=== PATIENT | female | born 1960 | race Caucasian/White ===

== ENCOUNTER 2019-06-04 14:34 | Emergency (ER) | payer MEDICARE ==
[~2019-06-04] VITALS: Ht 162.6 cm; Wt 49.0 kg
[2019-06-04] MEDS ORDERED: ALBUTEROL SULFATE 2.5 MG/3 ML NEBU. NEB ONE (14:45)
--- NOTE | 2019-06-04 15:27 | RAD ---
Exam: CT head and cervical spine INDICATION: Fall TECHNIQUE: Sequential axial images through the head and cervical spine were obtained without the administration of IV contrast. Comparisons: None FINDINGS: Head: No focal parenchymal lesion or hemorrhage is identified. There is no midline shift or sulcal effacement. No acute vascular territory infarction is identified. Glaser-white distinction is preserved. The ventricular system is within normal limits without compression hydrocephalus. The basal cisterns are well maintained. Extra cranial soft tissue contusion overlying the left temporal region over the zygomatic arch. The visualized portions of the paranasal sinuses and mastoid air cells are well-pneumatized. No acute fractures. Cervical spine: Vertebral body heights are well-maintained. There is a grade 1 anterolisthesis of C2 on C3. Grade 1 anterolisthesis of C6 on C7. Fracture to the cervical spine is not identified. Multilevel spondylotic change in the cervical spine with degenerative disc disease greatest at C3-C4, C4-C5 and C5-C6. Visualized paraspinal soft tissues are unremarkable. IMPRESSION: 1. Extracranial soft tissue contusion overlying the left temporal region without underlying osseous or intracranial abnormality. 2. Negative CT C-spine for acute traumatic injury. Exposure: One or more of the following in the visualized dose reduction techniques were utilized for this examination: 1. Automated exposure control 2. Adjustment of the MA and/or KV according to patient size Use of iterative of reconstructive technique Electronically signed by: Myranda Bennett MD (06/04/2019 3:24 PM) [id number]
--- NOTE | 2019-06-04 15:41 | RAD ---
Exam: Right foot 3 views INDICATION: Fall, history of fracture and arthritis many years ago TECHNIQUE: Frontal, lateral and oblique views of the right foot Comparisons: None FINDINGS: There is severe degenerative change at the first TMT and second TMT joints. Moderate overlying soft tissue swelling at the forefoot, with irregular mineralization of the underlying tarsal metatarsal joints. No displaced fractures are identified. Joint spaces are otherwise well-maintained. IMPRESSION: Soft tissue swelling overlying the first and second metatarsal, with severe degenerative changes at the underlying joints. A displaced fracture is not identified however one is difficult to exclude on radiographs. Recommend comparison to any prior imaging if available versus progress radiographs to assess for healing changes. Electronically signed by: Myranda Bennett MD (06/04/2019 3:39 PM) [id number]
[2019-06-04] MEDS ORDERED: ORPH-16 PO (16:25)
[2019-06-04] MEDS ORDERED: ACET-704 PO (16:25)
--- NOTE | 2019-06-04 16:25 | PHYS DOC ---
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 Patient denies any loss of consciousness but did strike her head. She also complains of neck pain. Patient rates pain to be a 9 out of 10. Patient also indicates that she has pain in her right foot that is more than usual but does not think that she injured her foot. She does have a history of rheumatoid arthritis. Patient states that nothing is improving her symptoms.[] Review of Systems Review of Systems Constitutional: Denies fever or chills [] Eyes: Denies change in visual acuity, redness, or eye pain [] HENT: Denies nasal congestion or sore throat [] Respiratory: Denies cough or shortness of breath [] Cardiovascular: No additional information not addressed in HPI [] GI: Denies abdominal pain, nausea, vomiting, bloody stools or diarrhea [] : Denies dysuria or hematuria [] Musculoskeletal: Denies back pain or joint pain [] Integument: Denies rash or skin lesions [] Neurologic: Denies headache, focal weakness or sensory changes [] Endocrine: Denies polyuria or polydipsia [] All other systems were reviewed and found to be within normal limits, except as documented in this note. Current Medications Current Medications Current Medications Medications (Trade) Dose Ordered Sig/Jovana Start Time Stop Time Status Last Admin Dose Admin Albuterol Sulfate (Ventolin) 2.5 mg 1X ONCE 06/04/19 14:45 06/04/19 14:56 DC 06/04/19 14:45 2.5 MG Allergies Allergies Allergies Coded Allergies Type Severity Reaction Last Updated Verified No Known Drug Allergies 06/04/19 No Physical Exam Physical Exam Constitutional: Well developed, well nourished, no acute distress, non-toxic appearance. [] HENT: Normocephalic, atraumatic, bilateral external ears normal, oropharynx moist, no oral exudates, nose normal. [] Eyes: PERRLA, EOMI, conjunctiva normal, no discharge. [] Neck: Normal range of motion, no tenderness, supple, no stridor. [] Cardiovascular:Heart rate regular rhythm, no murmur [] Lungs & Thorax: Bilateral breath sounds clear to auscultation [] Abdomen: Bowel sounds normal, soft, no tenderness, no masses, no pulsatile masses. [] Skin: Warm, dry, no erythema, no rash. [] Back: No tenderness, no CVA tenderness. [] Extremities: No tenderness, no cyanosis, no clubbing, ROM intact, no edema. [] Neurologic: Alert and oriented X 3, normal motor function, normal sensory function, no focal deficits noted. [] Psychologic: Affect normal, judgement normal, mood normal. [] Current Patient Data Vital Signs Vital Signs Date Time Temp Pulse Resp B/P (MAP) Pulse Ox O2 Delivery O2 Flow Rate FiO2 06/04/19 15:22 81 18 126/66 (86) 96 Room Air 06/04/19 14:34 97.9 EKG EKG [] Radiology/Procedures Radiology/Procedures [] Course & Med Decision Making Course & Med Decision Making Pertinent Labs and Imaging studies reviewed. (See chart for details) [] Dragon Disclaimer Dragon Disclaimer This electronic medical record was generated, in whole or in part, using a voice recognition dictation system. Departure Departure: Impression: Primary Impression: Closed head injury Additional Impression: Cervical myofascial strain Disposition: 01 HOME, SELF-CARE Condition: STABLE Referrals: SHLOMO DICKERSON (PCP) Patient Instructions: Cervical Sprain, Form - Excuse from Work, School, or Physical Activity, Head Injury, Adult Scripts Orphenadrine Citrate (ORPHENADRINE CITRATE) 100 Mg Tablet.er 1 TAB PO BID PRN for MUSCLE SPASMS, #14 TAB Prov: TOMAS MATTHEWS Jr. DO 06/04/19 Acetaminophen With Codeine (TYLENOL WITH CODEINE #3 TABLET) 1 Each Tablet 1 TAB PO PRN Q6HRS PRN for pain MDD 4 Tablet(s), #12 TAB 0 Refills Prov: TOMAS MATTHEWS Jr. DO 06/04/19 Problem Qualifiers Primary Impression: Closed head injury Encounter type: initial encounter Qualified Codes: S09.90XA - Unspecified injury of head, initial encounter Additional Impression: Cervical myofascial strain Encounter type: initial encounter Qualified Codes: S16.1XXA - Strain of muscle, fascia and tendon at neck level, initial encounter TOMAS MATTHEWS Jr. DO Jun 04, 2019 16:25
[2019-06-04] MEDS ORDERED: HYDROcodone/APAP 5/325MG 1 TAB TABLET ONE (16:53)
[2019-06-04] MEDS ORDERED: HYDROcodone/APAP 5/325MG 1 TAB TABLET PO ONE (17:00)
[2019-06-04 17:05] VITALS: BP 128/71
== END 2019-06-04 17:07 | disposition home or self-care (01) ==
LOC: ER 14:34
DX: S16.1XXA Strain of muscle, fascia and tendon at neck level, initial encounter (principal); S09.8XXA Other specified injuries of head, initial encounter; M79.671 Pain in right foot; J44.9 Chronic obstructive pulmonary disease, unspecified; M19.90 Unspecified osteoarthritis, unspecified site; M06.9 Rheumatoid arthritis, unspecified; W18.39XA Other fall on same level, initial encounter; Y93.89 Activity, other specified; Y92.89 Other specified places as the place of occurrence of the external cause; Y99.8 Other external cause status
CPT/HCPCS: 70450; 72125; 73630; 94640; 99284; J7613

== ENCOUNTER 2019-06-13 16:33 | Emergency (ER) | payer MEDICARE ==
[~2019-06-13] VITALS: Ht 162.6 cm; Wt 48.7 kg
[~2019-06-13 16:33] MED LIST: ACET-704 PO; ORPH-16 PO
[2019-06-13] MEDS ORDERED: IV NORMAL SALINE 1,000ML 1,000 ML IV SCH (17:23)
--- NOTE | 2019-06-13 17:39 | PHYS DOC ---
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 Patient has frequent falls as a long-standing side effect from gabapentin. She notes that she has been feeling increasingly weak over these past several days as well. Patient was seen approximately a week and a half ago for another fall where she injured the left side of her head. Imaging performed at that time was negative and she was discharged to home. She continues to have the previous pain also in her foot and ankle which is not significantly improved over time. She denies any chest pain or palpitations.[] (RUBEN URBINA DO) Review of Systems Review of Systems Constitutional: Denies fever or chills [] Eyes: Denies change in visual acuity, redness, or eye pain [] HENT: Denies nasal congestion or sore throat [] Respiratory: Denies cough or shortness of breath [] Cardiovascular: No chest pain or palpitations[] GI: Denies abdominal pain, nausea, vomiting, bloody stools or diarrhea [] : Denies dysuria or hematuria [] Musculoskeletal: Denies back pain see history of present illness[] Integument: Denies rash or skin lesions [] Neurologic: Denies focal weakness or sensory changes, see history of present illness [] Endocrine: Denies polyuria or polydipsia [] All other systems were reviewed and found to be within normal limits, except as documented in this note. (RUBEN URBINA DO) Allergies Allergies Allergies Coded Allergies Type Severity Reaction Last Updated Verified No Known Drug Allergies 06/04/19 No (RUBEN URBINA DO) Physical Exam Physical Exam Constitutional: Well developed, well nourished, no acute distress, non-toxic appearance. [] HENT: Normocephalic, bruising on the left side of her face. TMs are clear, no blood or fluid, no Fraire sign, bilateral external ears normal, oropharynx moist, no oral exudates, nose normal. [] Eyes: PERRLA, EOMI, conjunctiva normal, no discharge. [] Neck: Normal range of motion, no midline tenderness, tenderness in the left-si ded cervical paraspinal musculature., supple, no stridor. [] Cardiovascular:Heart rate regular rhythm, no murmur [] Lungs & Thorax: Bilateral breath sounds clear to auscultation [] Abdomen: Bowel sounds normal, soft, no tenderness, no masses, no pulsatile masses. [] Skin: Warm, dry, no erythema, no rash. [] Back: No tenderness, no CVA tenderness. [] Extremities: Left shoulder has diffuse tenderness to palpation. Decreased active range of motion. She is distally neurovascularly intact. No pain with axial load of the humerus. Full active range of motion of the wrist and fingers and elbow. Mild tenderness of the left foot and ankle region. Patient reports that this is unchanged from last visit. The other 2 extremities show: No tenderness, no cyanosis, no clubbing, ROM intact, no edema. [] Neurologic: Alert and oriented X 3, normal motor function, normal sensory function, no focal deficits noted. Resting twitching/tremor noted. [] Psychologic: Affect normal, judgement normal, mood normal. [] ([facility] Current Patient Data Vital Signs Vital Signs Date Time Temp Pulse Resp B/P (MAP) Pulse Ox O2 Delivery O2 Flow Rate FiO2 06/13/19 16:45 98.7 82 20 98 Room Air ([facility] EKG EKG EKG shows a supraventricular rhythm/sinus rhythm at 72 bpm, normal axis, QTC is elevated at 497 ms. This was interpreted by me at 1749. No ST elevation.[] [facility] Radiology/Procedures Radiology/Procedures [] ([facility] Radiology/Procedures [address] [address] IMAGING REPORT Signed PATIENT: GALE TELLEZ ACCOUNT: [id number] : 1960 LOCATION: ER AGE: 59 SEX: F EXAM STATUS: REG ER ORD. PHYSICIAN: RUBEN URBINA DO REASON: pain post fall, weakness PROCEDURE: CHEST PA & LATERAL Study: CHEST PA LATERAL Indication: Pain and weakness after a fall. Comparison: None. Findings: Prominent hiatal hernia. The cardiomediastinal silhouette is at the upper limits of normal for size. Increased interstitial markings bilaterally. Ill-defined haziness at the periphery of both lung bases. No lobar consolidation, pleural effusion or pneumothorax. No free air seen under the diaphragm. Impression: 1. Increased interstitial markings bilaterally and ill-defined haziness at the periphery of both lung bases. The appearance is nonspecific but can be seen with chronic parenchymal lung changes especially if there is a smoking history. No findings to suggest an organizing pneumonia. 2. Prominent hiatal hernia. 3. Upper limits of normal size of the cardiomediastinal silhouette. Electronically signed by: DYANA PAYNE MD (06/13/2019 6:25 PM) [facility] DICTATED AND SIGNED BY: DYANA PAYNE MD DATE: 06/13/191824 CC: RUBEN URBINA DO; SHLOMO DICKERSON ~ [address] [address] IMAGING REPORT Signed PATIENT: GALE TELLEZ ACCOUNT: [id number] : 1960 LOCATION: ER AGE: 59 SEX: F EXAM STATUS: REG ER ORD. PHYSICIAN: RUBEN URBINA DO REASON: pain post fall, PROCEDURE: SHOULDER 2+V LEFT Study: SHOULDER 2+V LEFT Indication: Pain after a fall. Comparison: None. Findings: Upper limits of normal width of the AC joint. Soft tissue fullness within the AC joint itself as well as extending above the AC joint. The humeral head is high riding but not dislocated. No acute fracture. Impression: 1. No acute fracture. 2. High riding humeral head which approaches the undersurface of the acromion. Recommend correlation for symptoms of rotator cuff deficiency. 3. Borderline widened AC joint with surrounding soft tissue fullness. This could be secondary to sprain or be degenerative in etiology with capsular hypertrophy. Electronically signed by: DYANA PAYNE MD (06/13/2019 6:29 PM) [facility] DICTATED AND SIGNED BY: DYANA PAYNE MD DATE: 06/13/191828 CC: RUBEN URBINA DO; SHLOMO DICKERSON ~ [address] [address] IMAGING REPORT Signed PATIENT: GALE TELLEZ ACCOUNT: [id number] : 1960 LOCATION: ER AGE: 59 SEX: F EXAM STATUS: REG ER ORD. PHYSICIAN: RUBEN URBINA DO REASON: pain post fall PROCEDURE: CT HEAD AND CERVICAL SPINE WO STUDY: CT head and cervical spine without contrast INDICATION: Pain after a fall. COMPARISON: CT head and cervical spine from 06/04/2019 TECHNIQUE: Axial CT imaging through the head and cervical spine without the use of intravenous contrast. Sagittal and coronal reformats were obtained. One or more of the following individualized dose reduction techniques were utilized for this examination: 1. Automated exposure control 2. Adjustment of the mA and/or kV according to patient size 3. Use of iterative reconstruction technique. FINDINGS: CT head: Previously noted contusion lateral to the left orbit has decreased in size. No newly seen scalp abnormality and the orbits/globes are unremarkable. The calvarium is intact. The visualized paranasal sinuses are well aerated. The mastoid air cells and middle ears are normally aerated as well. No acute intracranial hemorrhage. No mass effect, midline shift or hydrocephalus. Glaser-white matter differentiation is maintained. Redemonstrated patchy low-attenuation such as seen in the left frontal subcortical white matter. CT cervical spine: No acute fracture seen throughout the cervical or upper thoracic spine. Alignment is maintained at the craniocervical and atlantoaxial articulations. The dens is intact. Unchanged grade 1 anterolisthesis of C6 on C7. Multilevel discogenic arthrosis most advanced from C3-C4 through C5-C6. Multilevel facet degeneration, uncovertebral joint hypertrophy and disc osteophyte complex formation. This results in multiple levels with bony neural foraminal encroachment ranging mostly from mild to moderate. Central canal encroachment is again seen to be most pronounced at C3-C4 and moderate in severity. No prevertebral edema. IMPRESSION: CT head: 1. No acute intracranial abnormality. Previously seen contusion lateral to the left orbit has decreased in size. 2. Nonspecific white matter findings most notable at the left frontal lobe which likely represent the sequela of chronic microvascular ischemic change. CT cervical spine: 1. No acute fracture. No change in alignment relative to the 06/04/2019 comparison. 2. Unchanged cervical spondylosis with suspected moderate central canal stenosis at C3-C4 and multiple levels with mild and moderate bony neural foraminal encroachment. Electronically signed by: DYANA PAYNE MD (06/13/2019 6:18 PM) [facility] DICTATED AND SIGNED BY: DYANA PAYNE MD DATE: 06/13/191817 CC: RUBEN URBINA DO; SHLOMO [place]ERSON ~ [place] [address] IMAGING REPORT Signed PATIENT: GALE TELLEZ ACCOUNT: [id number] : 1960 LOCATION: ER AGE: 59 SEX: F EXAM STATUS: REG ER ORD. PHYSICIAN: RUBEN URBINA DO REASON: pain post fall PROCEDURE: CT HEAD AND CERVICAL SPINE WO STUDY: CT head and cervical spine without contrast INDICATION: Pain after a fall. COMPARISON: CT head and cervical spine from 06/04/2019 TECHNIQUE: Axial CT imaging through the head and cervical spine without the use of intravenous contrast. Sagittal and coronal reformats were obtained. One or more of the following individualized dose reduction techniques were utilized for this examination: 1. Automated exposure control 2. Adjustment of the mA and/or kV according to patient size 3. Use of iterative reconstruction technique. FINDINGS: CT head: Previously noted contusion lateral to the left orbit has decreased in size. No newly seen scalp abnormality and the orbits/globes are unremarkable. The calvarium is intact. The visualized paranasal sinuses are well aerated. The mastoid air cells and middle ears are normally aerated as well. No acute intracranial hemorrhage. No mass effect, midline shift or hydrocephalus. Glaser-white matter differentiation is maintained. Redemonstrated patchy low-attenuation such as seen in the left frontal subcortical white matter. CT cervical spine: No acute fracture seen throughout the cervical or upper thoracic spine. Alignment is maintained at the craniocervical and atlantoaxial articulations. The dens is intact. Unchanged grade 1 anterolisthesis of C6 on C7. Multilevel discogenic arthrosis most advanced from C3-C4 through C5-C6. Multilevel facet degeneration, uncovertebral joint hypertrophy and disc osteophyte complex formation. This results in multiple levels with bony neural foraminal encroachment ranging mostly from mild to moderate. Central canal encroachment is again seen to be most pronounced at C3-C4 and moderate in severity. No prevertebral edema. IMPRESSION: CT head: 1. No acute intracranial abnormality. Previously seen contusion lateral to the left orbit has decreased in size. 2. Nonspecific white matter findings most notable at the left frontal lobe which likely represent the sequela of chronic microvascular ischemic change. CT cervical spine: 1. No acute fracture. No change in alignment relative to the 06/04/2019 comparison. 2. Unchanged cervical spondylosis with suspected moderate central canal stenosis at C3-C4 and multiple levels with mild and moderate bony neural foraminal encroachment. Electronically signed by: DYANA PAYNE MD (06/13/2019 6:18 PM) [facility] DICTATED AND SIGNED BY: DYANA PAYNE MD DATE: 06/13/191817 CC: RUBEN URBINA DO; SHLOMO DICKERSON ~ (AARON LARA MD) Course & Med Decision Making Course & Med Decision Making Pertinent Labs and Imaging studies reviewed. (See chart for details) ED course: Patient arrived, was placed in bed, and tolerated exam well. At the time of this dictation, laboratory and imaging studies are pending. Patient care was endorsed to the nighttime physician at 1800 with these and process.[] (RUBEN URBINA DO) Course & Med Decision Making Impression: 1. Frequent Falls 2. Contusions 3. Arthritis 4. Mild Hypokalemia 3.4 5. Mild Elevation Glucose 6. Tobacco Use 7. Hx Chronic Pain 8. Mild Elevation Alk Phos. 9. Bilateral Basilar interstitial infiltrate/ atelectasis 10.UTI 11. Possible Drug Interaction- muscle relaxers, oxycodone, gabapentin 12. Tobacco Use 13. Urine Drug screen + opioid and methamphetamine Recommended pt. to follow up with primary and neurology. Pt. also to follow with [facility]. Pt. Strongly recommend to use a walker. Pt. elects to be discharge home. Declines admission for neuro observation and further eval. at this time. Pt. to use ice packs as needed. Push fruit juices. Follow up urine cultures. Take Keflex 500 three times a day for UTI (AARON LARA MD) Dragon Disclaimer Dragon Disclaimer This electronic medical record was generated, in whole or in part, using a voice recognition dictation system. (RUBEN URBINA DO) Departure Departure: Disposition: HOME/RESIDENCE PRIOR TO ADM Condition: STABLE Referrals: SHLOMO DICKERSON (PCP) Scripts Cephalexin (KEFLEX) 500 Mg Capsule 500 MG PO TID for UTI, , #10 BOTTLE Prov: AARON LARA MD 06/13/19 Dragon Disclaimer This chart was dictated in whole or in part using Voice Recognition software in a busy, high-work load, and often noisy Emergency Department environment. It may contain unintended and wholly unrecognized errors or omissions. (AARON LARA MD) RUBEN URBINA DO Jun 13, 2019 17:39 AARON LARA MD Jun 13, 2019 19:20
[2019-06-13] MEDS: MORPHINE SULFATE 2 MG/ML DISP.SYRIN. IV/SQ PRN ×2 (17:41→20:24)
[2019-06-13 17:57] LABS: BASO # 0.1 x10^3/uL (0.0-0.2); BASO % 1 % (0-3); EOS # 0.3 x10^3/uL (0.0-0.7); EOS % 4 % (0-3); HEMATOCRIT 38.7 % (36.0-47.0); HEMOGLOBIN 12.8 g/dL (12.0-15.5); LYMPH # 1.4 x10^3/uL (1.0-4.8); LYMPH % 17 % (24-48); MEAN CORPUSCULAR HEMOGLOBIN 30 pg (25-35); MEAN CORPUSCULAR HGB CONC 33 g/dL (31-37); MEAN CORPUSCULAR VOLUME 91 fL (79-100); MONO # 0.6 x10^3/uL (0.0-1.1); MONO % 8 % (0-9); NEUT # 5.8 x10^3uL (1.8-7.7); NEUT % 70 % (31-73); PLATELET COUNT 385 x10^3/uL (140-400); RED BLOOD COUNT 4.27 x10^6/uL (3.50-5.40); RED CELL DISTRIBUTION WIDTH 15.1 % (11.5-14.5); WHITE BLOOD COUNT 8.2 x10^3/uL (4.0-11.0)
[2019-06-13 18:16] LABS: ALBUMIN 3.6 g/dL (3.4-5.0); ALBUMIN/GLOBULIN RATIO 1.1 (1.0-1.7); CALCIUM 8.5 mg/dL (8.5-10.1); CREATININE 0.8 mg/dL (0.6-1.0); GFR 73.4; POTASSIUM 3.4 mmol/L (3.5-5.1); TOTAL BILIRUBIN 0.5 mg/dL (0.2-1.0); TOTAL PROTEIN 6.9 g/dL (6.4-8.2)
--- NOTE | 2019-06-13 18:21 | RAD ---
STUDY: CT head and cervical spine without contrast INDICATION: Pain after a fall. COMPARISON: CT head and cervical spine from 06/04/2019 TECHNIQUE: Axial CT imaging through the head and cervical spine without the use of intravenous contrast. Sagittal and coronal reformats were obtained. One or more of the following individualized dose reduction techniques were utilized for this examination: 1. Automated exposure control 2. Adjustment of the mA and/or kV according to patient size 3. Use of iterative reconstruction technique. FINDINGS: CT head: Previously noted contusion lateral to the left orbit has decreased in size. No newly seen scalp abnormality and the orbits/globes are unremarkable. The calvarium is intact. The visualized paranasal sinuses are well aerated. The mastoid air cells and middle ears are normally aerated as well. No acute intracranial hemorrhage. No mass effect, midline shift or hydrocephalus. Glaser-white matter differentiation is maintained. Redemonstrated patchy low-attenuation such as seen in the left frontal subcortical white matter. CT cervical spine: No acute fracture seen throughout the cervical or upper thoracic spine. Alignment is maintained at the craniocervical and atlantoaxial articulations. The dens is intact. Unchanged grade 1 anterolisthesis of C6 on C7. Multilevel discogenic arthrosis most advanced from C3-C4 through C5-C6. Multilevel facet degeneration, uncovertebral joint hypertrophy and disc osteophyte complex formation. This results in multiple levels with bony neural foraminal encroachment ranging mostly from mild to moderate. Central canal encroachment is again seen to be most pronounced at C3-C4 and moderate in severity. No prevertebral edema. IMPRESSION: CT head: 1. No acute intracranial abnormality. Previously seen contusion lateral to the left orbit has decreased in size. 2. Nonspecific white matter findings most notable at the left frontal lobe which likely represent the sequela of chronic microvascular ischemic change. CT cervical spine: 1. No acute fracture. No change in alignment relative to the 06/04/2019 comparison. 2. Unchanged cervical spondylosis with suspected moderate central canal stenosis at C3-C4 and multiple levels with mild and moderate bony neural foraminal encroachment. Electronically signed by: DYANA PAYNE MD (06/13/2019 6:18 PM) [facility]
--- NOTE | 2019-06-13 18:28 | RAD ---
Study: CHEST PA LATERAL Indication: Pain and weakness after a fall. Comparison: None. Findings: Prominent hiatal hernia. The cardiomediastinal silhouette is at the upper limits of normal for size. Increased interstitial markings bilaterally. Ill-defined haziness at the periphery of both lung bases. No lobar consolidation, pleural effusion or pneumothorax. No free air seen under the diaphragm. Impression: 1. Increased interstitial markings bilaterally and ill-defined haziness at the periphery of both lung bases. The appearance is nonspecific but can be seen with chronic parenchymal lung changes especially if there is a smoking history. No findings to suggest an organizing pneumonia. 2. Prominent hiatal hernia. 3. Upper limits of normal size of the cardiomediastinal silhouette. Electronically signed by: DYANA PAYNE MD (06/13/2019 6:25 PM) [facility]
--- NOTE | 2019-06-13 18:32 | RAD ---
Study: SHOULDER 2+V LEFT Indication: Pain after a fall. Comparison: None. Findings: Upper limits of normal width of the AC joint. Soft tissue fullness within the AC joint itself as well as extending above the AC joint. The humeral head is high riding but not dislocated. No acute fracture. Impression: 1. No acute fracture. 2. High riding humeral head which approaches the undersurface of the acromion. Recommend correlation for symptoms of rotator cuff deficiency. 3. Borderline widened AC joint with surrounding soft tissue fullness. This could be secondary to sprain or be degenerative in etiology with capsular hypertrophy. Electronically signed by: DYANA PAYNE MD (06/13/2019 6:29 PM) [facility]
[2019-06-13 19:45] LABS: BARBITURATES NEG (NEG); BENZODIAZEPINES NEG (NEG); CANNABINOIDS NEG (NEG); COCAINE NEG (NEG); METHADONE NEG (NEG); OPIATES POS (NEG); PHENCYCLIDINE NEG (NEG)
[2019-06-13 19:47] LABS: BILIRUBIN,URINE NEG (NEG); CLARITY,URINE HAZY; COLOR,URINE YELLOW; GLUCOSE,URINE NEG (NEG); NITRITE,URINE NEG (NEG); RBC,URINE OCC /HPF (0-2); UROBILINOGEN,URINE 0.2 mg/dL (0.2 mg/dL); WBC,URINE 20-40 /HPF (0-4)
[2019-06-13 19:48] LABS: BACTERIA,URINE MOD /HPF (0-FEW); SQUAMOUS EPITHELIAL CELL,UR OCC /LPF
[2019-06-13 19:49] LABS: AMPHETAMINE/METHAMPHETAMINE POS (NEG)
[2019-06-13] MEDS ORDERED: CEPH-264 PO (20:05)
[2019-06-13] MEDS ORDERED: cefTRIAXone SODIUM 1 GM VIAL ONE (20:10)
[2019-06-13] MEDS ORDERED: IV NORMAL SALINE 50ML 50 ML ONE (20:10)
[2019-06-13 20:45] VITALS: BP 146/89
--- NOTE | 2019-06-18 03:44 | EKG ---
[address] [address] Test Date: 2019-06-13 Test Time: 17:47:18 Pat Name: GALE TELLEZ Department: Room: Gender: F Functional Mental Disability Teacher: ELENA : 1960 Requested By: RUBEN URBINA Order Number: [id number] Reading MD: Measurements Intervals [place] Rate: 72 P: -57 [place]: 120 QRS: 2 QRSD: 94 T: 60 QT: 452 QTc: 497 Interpretive Statements SUPRAVENTRICULAR RHYTHM PROLONGED QT NO SPECIFIC ECG ABNORMALITIES RI6.01 No previous ECG available for comparison
== END 2019-06-13 20:45 | disposition home or self-care (01) ==
LOC: ER 16:33
DX: S05.12XA Contusion of eyeball and orbital tissues, left eye, initial encounter (principal); M25.512 Pain in left shoulder; M79.672 Pain in left foot; M25.572 Pain in left ankle and joints of left foot; M19.90 Unspecified osteoarthritis, unspecified site; E87.6 Hypokalemia; R73.02 Impaired glucose tolerance (oral); G89.29 Other chronic pain; R74.8 Abnormal levels of other serum enzymes; N39.0 Urinary tract infection, site not specified; F17.210 Nicotine dependence, cigarettes, uncomplicated; F11.90 Opioid use, unspecified, uncomplicated; F15.90 Other stimulant use, unspecified, uncomplicated; J44.9 Chronic obstructive pulmonary disease, unspecified; Z91.81 History of falling; W18.39XA Other fall on same level, initial encounter; Y93.89 Activity, other specified; Y92.89 Other specified places as the place of occurrence of the external cause; Y99.8 Other external cause status
CPT/HCPCS: 36415; 70450; 71046; 72125; 73030; 80053; 80307; 81001; 83690; 83735; 83880; 84484; 85025; 85610; 85730; 87086; 96365; 96375; 96376; 99285; J0696; J2270; J7030

== ENCOUNTER 2019-07-29 20:50 | Emergency (ER) | payer MEDICARE ==
[~2019-07-29] VITALS: Ht 162.6 cm; Wt 48.7 kg
[~2019-07-29 20:50] MED LIST changes: +CEPH-264 PO
[2019-07-29] MEDS ORDERED: PROM118S9 PO (22:31)
[2019-07-29] MEDS ORDERED: DOXY100T PO (22:31)
--- NOTE | 2019-07-29 22:32 | PHYS DOC ---
Past History Past Medical History: Arthritis, Asthma, COPD, GERD, Hypothyroid Additional Past Medical Histor: something pt calls "precurser to parkinsons" caused by gabapentin Past Surgical History: No Surgical History Smoking: Cigarettes Alcohol Use: None Drug Use: Methamphetamine Adult General Chief Complaint Chief Complaint: SKIN RASH/ABSCESS HPI HPI Patient is a 59-year-old female presents with sores on her left ear and bilateral arms. This started shortly after she used methamphetamine, 4 days ago. No fever. No drainage from these areas. They are sore and red. She has not seen her primary physician for this. Symptoms are moderate in intensity. Nothing makes them better or worse. No relief with Neosporin ointment.[] Review of Systems Review of Systems Constitutional: Denies fever or chills [] Eyes: Denies change in visual acuity, redness, or eye pain [] HENT: Denies nasal congestion or sore throat [] Respiratory: Denies hemoptysis or shortness of breath, cough is present. She is a smoker. [] Cardiovascular: Chest pain or palpitations[] GI: Denies abdominal pain, nausea, vomiting, bloody stools or diarrhea [] : Denies dysuria or hematuria [] Musculoskeletal: Denies back pain or joint pain [] Integument: See history of present illness[] Neurologic: Denies headache, focal weakness or sensory changes [] Endocrine: Denies polyuria or polydipsia [] All other systems were reviewed and found to be within normal limits, except as documented in this note. Allergies Allergies Allergies Coded Allergies Type Severity Reaction Last Updated Verified No Known Drug Allergies 06/04/19 No Physical Exam Physical Exam Constitutional: Well developed, well nourished, no acute distress, non-toxic appearance. [] HENT: Normocephalic, atraumatic, bilateral external ears normal, oropharynx moist, no oral exudates, nose normal. [] Eyes: PERRLA, EOMI, conjunctiva normal, no discharge. [] Neck: Normal range of motion, no tenderness, supple, no stridor. [] Cardiovascular:Heart rate regular rhythm, no murmur [] Lungs & Thorax: Bilateral breath sounds clear to auscultation, no rales rhonchi or wheezes, no increased work of breathing [] Abdomen: Bowel sounds normal, soft, no tenderness, no masses, no pulsatile masses. [] Skin: Warm, dry, erythema and excoriations on both volar surface of forearms. Also the 7 o'clock position reference to her left ear canal, going down to the earlobe. Also her left index finger appears swollen, there is an abrasion over the middle phalanx, dorsal surface, radial aspect. [] Back: No tenderness, no CVA tenderness. [] Extremities: No tenderness, no cyanosis, no clubbing, ROM intact, no edema. [] Neurologic: Alert and oriented X 3, normal motor function, normal sensory function, no focal deficits noted. [] Psychologic: Affect normal, judgement normal, mood normal. [] Current Patient Data Vital Signs Vital Signs Date Time Temp Pulse Resp B/P (MAP) Pulse Ox O2 Delivery O2 Flow Rate FiO2 07/29/19 21:20 98.9 87 20 100 Room Air EKG EKG [] Radiology/Procedures Radiology/Procedures [] Course & Med Decision Making Course & Med Decision Making Pertinent Labs and Imaging studies reviewed. (See chart for details) ED course: Patient arrived, was placed in bed, and tolerated exam well. Findings and plan were discussed with the patient who voiced understanding. All questions were answered. She was discharged in improved condition. Medical decision making: Patient with multiple areas of cellulitis, most likely is result of "picking" during her methamphetamine use. No evidence of systemic toxicity. No evidence of pneumonialungs are clear to auscultation. Will treat with antibiotics that will cover both lung issues as well as skin issues. No evidence of hypoxia.[] Dragon Disclaimer Dragon Disclaimer This electronic medical record was generated, in whole or in part, using a voice recognition dictation system. Departure Departure: Impression: Primary Impression: Cellulitis Additional Impressions: Cough Methamphetamine abuse Disposition: HOME, SELF-CARE Condition: IMPROVED Referrals: SHLOMO DICKERSON (PCP) Follow-up in 2 days Patient Instructions: Cellulitis, Cough, Adult, Methamphetamine Abuse, Complications Additional Instructions: Follow-up up with your regular doctor in 2 days. Do not use methamphetamine or any other drugs or medicines that are not prescribed for you. They may kill you! Takes the medication as prescribed. Return to the ER if you develop a fever of more than 101, difficulty breathing, or any other concerns. Scripts D-Methorphan Hb/Prometh Hcl (PROMETHAZINE-DM SYRUP) 118 Ml Syrup 5 ML PO PRN Q4HRS for CONGESTION, #120 ML Prov: RUBEN URBINA DO 07/29/19 Doxycycline Hyclate (DOXYCYCLINE HYCLATE) 100 Mg Tablet 1 TAB PO BID for skin infection, #20 TAB Prov: RUBEN URBINA DO 07/29/19 Problem Qualifiers Primary Impression: Cellulitis Site of cellulitis: unspecified site Qualified Codes: L03.90 - Cellulitis, unspecified RUBEN URBINA DO Jul 29, 2019 22:32
[2019-07-29 23:02] VITALS: BP 137/88
== END 2019-07-29 23:02 | disposition home or self-care (01) ==
LOC: ER 20:50
DX: S60.413A Abrasion of left middle finger, initial encounter (principal); L03.90 Cellulitis, unspecified; F15.10 Other stimulant abuse, uncomplicated; M19.90 Unspecified osteoarthritis, unspecified site; J44.9 Chronic obstructive pulmonary disease, unspecified; K21.9 Gastro-esophageal reflux disease without esophagitis; E03.9 Hypothyroidism, unspecified; F17.210 Nicotine dependence, cigarettes, uncomplicated; X58.XXXA Exposure to other specified factors, initial encounter; Y93.89 Activity, other specified; Y92.89 Other specified places as the place of occurrence of the external cause; Y99.8 Other external cause status
CPT/HCPCS: 99283

== ENCOUNTER 2019-12-09 14:58 | Emergency (ER) | payer MEDICARE ==
[~2019-12-09] VITALS: Ht 162.6 cm; Wt 46.3 kg
[~2019-12-09 14:58] MED LIST changes: +DOXY100T PO; +PROM118S9 PO
[2019-12-09 15:05] VITALS: BP 132/81
[2019-12-09] MEDS ORDERED: NEOMY/BACITR/POLYMYXIN OINT PACKET. TP ONE (15:30)
[2019-12-09] MEDS ORDERED: LIDOCAINE 2%/EPI 1:100,000 20 ML VIAL. IJ ONE (15:30)
--- NOTE | 2019-12-09 16:49 | PHYS DOC ---
Past History Past Medical History: Arthritis, Asthma, COPD, GERD, Hypothyroid Additional Past Medical Histor: something pt calls "precurser to parkinsons" caused by gabapentin Past Surgical History: Other Additional Past Surgical Histo: HERNIA Smoking: Cigarettes Alcohol Use: None Drug Use: None General Adult EDM: Chief Complaint: LACERATION/AVULSION HPI: HPI: 59-year-old female presents with report of mechanical trip and fall when patient had gotten up to use restroom at 0500 with subsequent left forehead laceration after hitting corner of her wall. Denies loss of consciousness. Denies nausea or vomiting. Denies neck pain. Patient denies use of blood thinners. Reports last tetanus booster in May 2019. Patient was seen by her boyfriend this afternoon who felt patient may require suture repair. Patient denies other complaint. Review of Systems: Review of Systems: Constitutional: Denies fever or chills Eyes: Denies redness or eye pain HENT: Denies nasal congestion or sore throat Respiratory: Denies cough or shortness of breath Cardiovascular: Denies chest pain or palpitations GI: Denies abdominal pain, nausea, or vomiting : Denies dysuria or hematuria Musculoskeletal: Denies back pain or joint pain Integument: Reports left forehead laceration Neurologic: Denies headache, focal weakness or sensory changes Complete systems were reviewed and found to be within normal limits, except as documented in this note. Current Medications: Current Meds: Current Medications Medications (Trade) Dose Ordered Sig/Jovana Start Time Stop Time Status Last Admin Dose Admin Lidocaine/ Epinephrine (Xylocaine 2%-Epi 1:100,000) 20 ml 1X ONCE 12/09/19 15:30 12/09/19 15:45 DC Neomycin/ Polymyxin/ Bacitracin (Triple Antibiotic Ointment) 1 pkt 1X ONCE 12/09/19 15:30 12/09/19 15:45 DC Allergies: Allergies: Allergies Coded Allergies Type Severity Reaction Last Updated Verified No Known Drug Allergies 06/04/19 No Physical Exam: PE: Constitutional: Well developed, well nourished, no acute distress, non-toxic appearance HENT: Normocephalic, 3cm vertical laceration to left forehead extending to hairline Eyes: PERRL, EOMI, conjunctiva normal, no discharge, no nystagmus Neck: Normal range of motion, no midline tenderness, supple Lungs & Thorax: No respiratory distress, equal chest rise and fall Abdomen: Soft, no tenderness Skin: Warm, dry, no erythema, no rash, bilateral hand dryness noted, joints enlarged consistent with arthritis Back: No tenderness, no CVA tenderness Extremities: No tenderness, ROM intact, no edema Neurologic: Alert and oriented X 3, normal motor function, normal sensory function, no focal deficits noted Psychologic: Affect normal, judgment normal Current Patient Data: Vital Signs: Vital Signs Date Time Temp Pulse Resp B/P (MAP) Pulse Ox O2 Delivery O2 Flow Rate FiO2 12/09/19 15:05 97.9 97 20 132/81 (98) 97 Room Air EKG: EKG: [] Radiology/Procedures: Radiology/Procedures: [] Course & Med Decision Making: Course & Med Decision Making Patient presents with mechanical slip and fall early this morning with laceration to left forehead. Patient neurologically intact. No midline cervical spine tenderness noted. Tetanus up-to-date. Wound cleaned and repaired with sutures. Dressing applied. Patient also with hand dryness secondary to frequent cleaning. Advised to use Aquaphor. Patient stable for discharge with outpatient follow-up with PCP. Discussed findings and plan with patient, who acknowledges understanding and agreement. Tony Disclaimer: Shopsy Disclaimer: This electronic medical record was generated, in whole or in part, using a voice recognition dictation system. Laceration/Wound Repair Laceration/Wound Repair : Wound Location: head Wound's Depth, Shape: linear Wound Length (cm): 3 Wound Explored: no foreign body removed Irrigated w/ Saline (ccs): 100 Betadine Prep?: Yes Anesthesia: Lidocaine w/ Epi (2%) Volume Anesthetic (ccs): 3 Wound Debrided: minimal Wound Repaired With: sutures Suture Size/Type: 6:0, nylon Number of Sutures: 5 Sterile Dressing Applied?: Yes Progress Verbal consent obtained. Time out performed. Hand hygiene utilized. Wound cleaned with Betadine. Anesthesia obtained via a 25-gauge hypodermic needle with (3) mL's of lidocaine 2% with epinephrine. Wound well approximated with 6-0 Nylon x 5 simple interrupted sutures. Patient tolerated procedure well and without difficulty. Empiric antibiotic ointment applied prior to sterile dressing. Departure Departure: Impression: Primary Impression: Forehead laceration Qualified Codes: S01.81XA - Laceration without foreign body of other part of head, initial encounter Additional Impression: Irritant hand dermatitis Disposition: 01 HOME, SELF-CARE Condition: STABLE Referrals: SHLOMO DICKERSON (PCP) Patient Instructions: Hand Dermatitis, [id number], Laceration Care, Adult, [id number] Additional Instructions: Do not soak your wound. You may shower. Clean wound daily with soap and water. Change dressing 2 times daily. Use over the counter antibiotic ointment with each dressing change. Sutures need to be removed in 5 days. Present to your family doctor or local urgent care for removal. You may also present to the ED but it will be an additional visit/charge. After suture removal you may use Vitamin E ointment to soften the wound and prevent scarring. USE Aquaphor for your hand dryness. Use over the counter Tylenol and/or Ibuprofen for pain or discomfort. ALIZE JULIAN DO Dec 09, 2019 16:49
== END 2019-12-09 16:54 | disposition home or self-care (01) ==
LOC: ER 14:58
DX: S01.81XA Laceration without foreign body of other part of head, initial encounter (principal); L24.9 Irritant contact dermatitis, unspecified cause; M19.90 Unspecified osteoarthritis, unspecified site; J44.9 Chronic obstructive pulmonary disease, unspecified; K21.9 Gastro-esophageal reflux disease without esophagitis; E03.9 Hypothyroidism, unspecified; F17.210 Nicotine dependence, cigarettes, uncomplicated; W01.198A Fall on same level from slipping, tripping and stumbling with subsequent striking against other object, initial encounter; Y93.89 Activity, other specified; Y92.89 Other specified places as the place of occurrence of the external cause; Y99.8 Other external cause status
CPT/HCPCS: 12013; 99282

== ENCOUNTER 2019-12-19 15:08 | Emergency (ER) | payer MEDICARE ==
[~2019-12-19] VITALS: Ht 162.6 cm; Wt 48.1 kg
[2019-12-19 15:25] VITALS: BP 130/80
--- NOTE | 2019-12-19 15:59 | RAD ---
EXAM: Left knee, 4 views. HISTORY: Pain. COMPARISON: None. FINDINGS: 4 views of the left knee are obtained. There is mild medial compartment joint space narrowing and spurring. There is trace joint fluid. There is minimal enthesopathy at the Achilles tendon insertion. IMPRESSION: Mild medial compartment predominant osteoarthritis of the left knee. Electronically signed by: Marixa Syed MD (12/19/2019 3:56 PM) [id number]
--- NOTE | 2019-12-19 16:02 | PHYS DOC ---
Past History Past Medical History: Arthritis, Asthma, COPD, GERD, Hypothyroid Additional Past Medical Histor: something pt calls "precurser to parkinsons" caused by gabapentin Past Surgical History: Other Additional Past Surgical Histo: HERNIA Smoking: Cigarettes Alcohol Use: None Drug Use: None General Adult EDM: Chief Complaint: SUTURE/STAPLE REMOVAL HPI: HPI: 59-year-old female presents for suture removal from her forehead. While the patient was walking to her room, she fell onto the floor. She is complaining left knee pain and still wants her lamin out. Patient is able to walk. She has no other complaints this time. Review of Systems: Review of Systems: Constitutional: Denies fever or chills Eyes: Denies change in visual acuity HENT: Denies nasal congestion or sore throat Respiratory: Denies cough or shortness of breath Cardiovascular: Denies chest pain or edema GI: Denies abdominal pain, nausea, vomiting, bloody stools or diarrhea : Denies dysuria Musculoskeletal: Left knee pain Integument: Sutures in the forehead Neurologic: Denies headache, focal weakness or sensory changes Endocrine: Denies polyuria or polydipsia Lymphatic: Denies swollen glands Psychiatric: Denies depression or anxiety Heart Score: Risk Factors: Risk Factors: DM, Current or recent (<one month) smoker, HTN, HLP, family history of CAD, obesity. Risk Scores: Score 0 - 3: 2.5% MACE over next 6 weeks - Discharge Home Score 4 - 6: 20.3% MACE over next 6 weeks - Admit for Clinical Observation Score 7 - 10: 72.7% MACE over next 6 weeks - Early Invasive Strategies Allergies: Allergies: Allergies Coded Allergies Type Severity Reaction Last Updated Verified No Known Drug Allergies 06/04/19 No Physical Exam: PE: Constitutional: Well developed, well nourished, no acute distress, non-toxic appearance. [] HENT: Normocephalic, atraumatic, bilateral external ears normal, oropharynx moist, no oral exudates, nose normal. [] Eyes: PERRLA, EOMI, conjunctiva normal, no discharge. [] Neck: Normal range of motion, no tenderness, supple, no stridor. [] Cardiovascular:Heart rate regular rhythm, no murmur [] Lungs & Thorax: Bilateral breath sounds clear to auscultation [] Abdomen: Bowel sounds normal, soft, no tenderness, no masses, no pulsatile masses. [] Skin: Well-healed laceration of the forehead with sutures in place. [] Back: No tenderness, no CVA tenderness. [] Extremities: No tenderness, no cyanosis, no clubbing, ROM intact, no edema. [] Neurologic: Alert and oriented X 3, normal motor function, normal sensory function, no focal deficits noted. [] Psychologic: Affect normal, judgement normal, mood normal. [] EKG: EKG: [] Radiology/Procedures: Radiology/Procedures: [] Impressions: EXAM: Left knee, 4 views. HISTORY: Pain. COMPARISON: None. FINDINGS: 4 views of the left knee are obtained. There is mild medial compartment joint space narrowing and spurring. There is trace joint fluid. There is minimal enthesopathy at the Achilles tendon insertion. IMPRESSION: Mild medial compartment predominant osteoarthritis of the left knee. Electronically signed by: Marixa Syed MD (12/19/2019 3:56 PM) [id number] DICTATED AND SIGNED BY: MARIXA SYED MD DATE: 12/19/19 1556 CC: MELLO DE LEON DO; SHLOMO DICKERSON ~ Course & Med Decision Making: Course & Med Decision Making Pertinent Labs and Imaging studies reviewed. (See chart for details) [] Dragon Disclaimer: Tony Disclaimer: This electronic medical record was generated, in whole or in part, using a voice recognition dictation system. Departure Departure: Impression: Primary Impression: Encounter for removal of sutures Additional Impression: Fall from slip, trip, or stumble Qualified Codes: W01.0XXA - Fall on same level from slipping, tripping and stumbling without subsequent striking against object, initial encounter Disposition: HOME, SELF-CARE Condition: STABLE Referrals: SHLOMO DICKERSON (PCP) Patient Instructions: Suture Removal-Brief MELLO DE LEON DO December 19, 2019 16:02
== END 2019-12-19 16:14 | disposition home or self-care (01) ==
LOC: ER 15:08
DX: S01.81XD Laceration without foreign body of other part of head, subsequent encounter (principal); M25.562 Pain in left knee; K21.9 Gastro-esophageal reflux disease without esophagitis; J44.9 Chronic obstructive pulmonary disease, unspecified; E03.9 Hypothyroidism, unspecified; F17.210 Nicotine dependence, cigarettes, uncomplicated; W01.0XXA Fall on same level from slipping, tripping and stumbling without subsequent striking against object, initial encounter
CPT/HCPCS: 73562; 99284

== ENCOUNTER 2020-03-25 16:51 | Emergency (ER) | payer MEDICARE ==
[~2020-03-25] VITALS: Ht 162.6 cm; Wt 43.0 kg
[~2020-03-25 16:51] MED LIST changes: +PROM118S10 PO; -PROM118S9 PO
[2020-03-25 17:10] VITALS: BP 113/84
[2020-03-25] MEDS ORDERED: LORazepam 1 MG TABLET PO ONE (17:30)
--- NOTE | 2020-03-25 17:50 | PHYS DOC ---
Past History Past Medical History: Arthritis, Asthma, COPD Additional Past Medical Histor: something pt calls "precurser to parkinsons" caused by gabapentin (NAVEED WILSON MD) Past Surgical History: Other Additional Past Surgical Histo: umbilical hernia (NAVEED WILSON MD) Smoking: Cigarettes Alcohol Use: None Drug Use: None (NAVEED WILSON MD) Adult General Chief Complaint Chief Complaint: OTHER COMPLAINTS HPI HPI Patient is a 59 year old female who presents with hallucinations. Patient was sent down here by her primary care physician who was concerned. She saw her earlier today and at that time she was normal. Patient states that she has bugs coming out of her and that no one will help her. History is very limited. (NAVEED WILSON MD) Review of Systems Review of Systems General: Denies fever, chills, sweats, fatigue Eyes: Denies drainage, blurred vision, eye redness HENT: Denies rhinorrhea, sore throat, earache Respiratory: Denies cough, shortness of breath, wheezing Cardiac: Denies edema, palpitations, chest pain GI: Denies abdominal pain, Nausea, vomiting MSK: Denies back pain, neck pain Skin: Denies rash, jaundice Neuro: Denies headache, dizziness Psychiatric: Denies SI/HI (NAVEED WILSON MD) Current Medications Current Medications Current Medications Medications (Trade) Dose Ordered Sig/Jovana Start Time Stop Time Status Last Admin Dose Admin Lorazepam (Ativan) 1 mg 1X ONCE 03/25/20 17:30 03/25/20 17:31 DC 03/25/20 17:39 1 MG (NAVEED WILSON MD) Allergies Allergies Allergies Coded Allergies Type Severity Reaction Last Updated Verified No Known Drug Allergies 06/04/19 No (NAVEED WILSON MD) Physical Exam Physical Exam General: Awake, alert, anxious, moving around chaotic lady HEENT: Atraumatic, EOMI, PERRL, airway patent, moist oral mucosa Neck: Supple, trachea midline Respiratory: CTA bilaterally, normal effort, no wheezing/crackles CV: RRR, no murmur, cap refill <2 GI: Soft, nondistended, nontender, no masses MSK: No obvious deformities Skin: Warm, dry, intact Neuro: A&O x3, speech NL, sensory and motor grossly intact, no focal deficits Psych: Hallucinating, not suicidal or homicidal (NAVEED WILSON MD) Current Patient Data Vital Signs Vital Signs Date Time Temp Pulse Resp B/P (MAP) Pulse Ox O2 Delivery O2 Flow Rate FiO2 03/25/20 17:10 98.1 94 18 113/84 (94) 97 Room Air (NAVEED WILSON MD) Lab Results Laboratory Tests Test 03/25/20 18:30 Urine Opiates Screen Pos Urine Methadone Screen Neg Urine Barbiturates Neg Urine Phencyclidine Screen Neg Urine Amphetamine/Methamphetamine Pos Urine Benzodiazepines Screen Neg Urine Cocaine Screen Neg Urine Cannabinoids Screen Neg Urine Ethyl Alcohol Neg Current Medications Medications (Trade) Dose Ordered Sig/Jovana Route PRN Reason Start Time Stop Time Status Last Admin Dose Admin Lorazepam (Ativan) 1 mg 1X ONCE PO 03/25/20 17:30 03/25/20 17:31 DC 03/25/20 17:39 (GLENROY BAXTER DO) EKG EKG [] (NAVEED WILSON MD) Radiology/Procedures Radiology/Procedures [] (NAVEED WILSON MD) Course & Med Decision Making Course & Med Decision Making Pertinent Labs and Imaging studies reviewed. (See chart for details) Patient is a 59-year-old female who presents to the emergency room complaining of bugs coming out of her. There is no bugs apparent on exam. It is likely that this is drug-induced. Drug screen will be ordered. Patient was discussed with oncoming physician who will assume care. (NAVEED WILSON MD) Course & Med Decision Making Comprehensive signout given by daytime physician, I saw and evaluated patient and agree with previous physician's documentation of HPI and physical exam find ings Agreed with decision to obtain urine drug screen, this was positive for amphetamines Patient's presentation classic for methamphetamine side effects, appears under the influence and tweaking currently Hemodynamically stable, has right at this time, her partner whom she lives with. Discussed importance of methamphetamine cessation at length, patient continued to deny active use Discussed limited utility in further work-up/diagnostic testing in the emergency department Patient was ultimately discharged home in stable condition. Strict return precautions were discussed, all questions and concerns addressed (GLENROY BAXTER DO) Dragon Disclaimer Dragon Disclaimer This electronic medical record was generated, in whole or in part, using a voice recognition dictation system. (NAVEED WILSON MD) Departure Departure: Impression: Primary Impression: Hallucinations Additional Impression: Positive urine drug screen Disposition: HOME/RESIDENCE PRIOR TO ADM Condition: STABLE Referrals: SHLOMO DICKERSON (PCP) Patient Instructions: Methamphetamine Abuse, Complications Justification of Admission: Justification of Admission: Justification of Admission Dx: Yes (NAVEED WILSON MD) Justification of Admission Dx: N/A (GLENROY BAXTER DO) Problem Qualifiers NAVEED WILSON MD Mar 25, 2020 17:50 GLENROY BAXTER DO Mar 25, 2020 19:03
[2020-03-25 18:50] LABS: BARBITURATES NEG (NEG); BENZODIAZEPINES NEG (NEG); CANNABINOIDS NEG (NEG); COCAINE NEG (NEG); METHADONE NEG (NEG); OPIATES POS (NEG); PHENCYCLIDINE NEG (NEG)
[2020-03-25 18:52] LABS: AMPHETAMINE/METHAMPHETAMINE POS (NEG)
== END 2020-03-25 19:05 | disposition home or self-care (01) ==
LOC: ER 16:51
DX: R44.3 Hallucinations, unspecified (principal); J44.9 Chronic obstructive pulmonary disease, unspecified; F17.210 Nicotine dependence, cigarettes, uncomplicated; M19.90 Unspecified osteoarthritis, unspecified site
CPT/HCPCS: 36415; 80307; 99283

== ENCOUNTER → 2021-03-18 | Outpatient (CLI) | payer MEDICARE, OTHER ==
--- NOTE | 2021-03-18 12:20 | RAD ---
EXAM: DUAL ENERGY X-RAY ABSORPTIOMETRY (DEXA). HISTORY: Postmenopausal screening. FINDINGS: The lowest measured T-score is -2.2 in the right hip, based on a bone mineral density of 0. 685 g/cm^2. Refer to the worksheets for full detail. No comparison examinations are available. IMPRESSION: 1. Low bone mass. Bone mineral density yields a T-score between -1.0 and -2.5. Fracture risk is incre ased. 2. FRAX report: Not calculated. METHODOLOGY: Dual energy x-ray absorptiometry was performed to measure bone mineral density. The foll owing analysis is based on the 2019 Official Positions of the International Society for Clinical Dens itometry: Measurements of the hips and the average of L1-L4 are preferred. When the spine and/or hip cannot be feasibly measured or interpreted, or in the setting of hyperparathyroidism, distal radial bone minera l density may be measured. The lumbar spine T-score is based on the average bone mineral density of L1-L4. In the setting of art ifact or anatomic abnormality, some lumbar levels may be excluded, and the remaining levels used for calculation. A single lumbar level is not used for diagnosis, and if only a single level is available for assessment, another anatomic site will be used to assign a diagnosis. The hip T-score is based on the bone mineral density measurement of the femoral neck or total proxima l femur of either side, whichever is lowest. Bilateral mean values are not used for diagnosis. The forearm T-score is derived from 33% of the distal radius of the nondominant forearm. Electronically signed by: Marixa Syed MD (03/18/2021 12:18 PM) [id number]
--- NOTE | 2021-03-22 16:38 | RAD ---
EXAM: BILATERAL DIGITAL 3D SCREENING MAMMOGRAPHY. HISTORY: Routine mammographic screening. TECHNIQUE: Bilateral digital 3D and tomographic images were obtained in CC and MLO projections. Compu ter-aided detection was applied. COMPARISON: None available. This is interpreted as a baseline study. COMPOSITION: D. The breasts are extremely dense, which lowers the sensitivity of mammography. FINDINGS: There is a small cluster of calcifications medially and inferiorly on the left. See annotat ions. Coarse calcifications on the right are stable. There is no suspicious finding on the right. BI-RADS CATEGORY 0: Incomplete--Needs Additional Imaging Evaluation. RECOMMENDATION: 1. Magnification of a small cluster of calcifications inferomedially on the left. Electronically signed by: Em Brooks MD (03/22/2021 4:36 PM) [id number]
== END ==
LOC: RAD 10:08
PROVIDERS: ATTEND Family Medicine
DX: Z12.31 Encounter for screening mammogram for malignant neoplasm of breast (principal); R92.1 Mammographic calcification found on diagnostic imaging of breast; Z78.0 Asymptomatic menopausal state
CPT/HCPCS: 77063; 77067; 77080